=== PATIENT | female | born 1960 | race American Indian/Alaskan Native ===

== ENCOUNTER 2017-09-15 09:46 | Emergency (ER) | payer SELFPAY ==
[2017-09-15 10:59] LABS: ADD MAN DIFF? NO
[2017-09-15 11:02] LABS: BASO # 0.1 x10^3/uL (0.0-0.2); BASO % 1 % (0-3); EOS # 0.3 x10^3/uL (0.0-0.7); EOS % 4 % (0-3); HEMATOCRIT 40.5 % (36.0-47.0); HEMOGLOBIN 13.9 g/dL (12.0-15.5); LYMPH # 2.3 x10^3/uL (1.0-4.8); LYMPH % 34 % (24-48); MEAN CORPUSCULAR HEMOGLOBIN 30 pg (25-35); MEAN CORPUSCULAR HGB CONC 34 g/dL (31-37); MEAN CORPUSCULAR VOLUME 89 fL (79-100); MONO # 0.8 x10^3/uL (0.0-1.1); MONO % 12 % (0-9); NEUT # 3.4 x10^3uL (1.8-7.7); NEUT % 49 % (31-73); PLATELET COUNT 185 x10^3/uL (140-400); RED BLOOD COUNT 4.55 x10^6/uL (3.50-5.40); RED CELL DISTRIBUTION WIDTH 13.9 % (11.5-14.5); WHITE BLOOD COUNT 6.9 x10^3/uL (4.0-11.0)
[2017-09-15 11:04] LABS: BILIRUBIN,URINE NEGATIVE (NEG); CLARITY,URINE CLEAR; COLOR,URINE YELLOW; GLUCOSE,URINE NEGATIVE (NEG); NITRITE,URINE NEGATIVE (NEG); PROTEIN,URINE NEGATIVE (NEG-TRACE)
[2017-09-15 11:09] LABS: ANION GAP 8 (6-14); BLOOD UREA NITROGEN 17 mg/dL (7-20); BUN/CREATININE RATIO 14 (6-20); CALCIUM 8.8 mg/dL (8.5-10.1); CARBON DIOXIDE 26 mmol/L (21-32); CHLORIDE 108 mmol/L (98-107); CREATININE 1.2 mg/dL (0.6-1.0); GFR 46.6; GLUCOSE 104 mg/dL (70-99); POTASSIUM 3.4 mmol/L (3.5-5.1); SODIUM 142 mmol/L (136-145)
[2017-09-15 11:15] LABS: ALBUMIN 2.9 g/dL (3.4-5.0); ALBUMIN/GLOBULIN RATIO 0.6 (1.0-1.7); ALK PHOS 87 U/L (46-116); ALT (SGPT) 50 U/L (14-59); AST (SGOT) 47 U/L (15-37); SQUAMOUS EPITHELIAL CELL,UR MANY /LPF; TOTAL BILIRUBIN 0.4 mg/dL (0.2-1.0); TOTAL PROTEIN 7.6 g/dL (6.4-8.2)
[2017-09-15 11:16] LABS: BACTERIA,URINE MODERATE /HPF (0-FEW)
[2017-09-15 11:21] LABS: NT-PRO BNP 68 pg/mL (0-124)
[2017-09-15] MEDS ORDERED: ONDANSETRON PF 4 MG/2 ML VIAL. (11:35)
[2017-09-15] MEDS: IV NORMAL SALINE 1000ML BAG 1,000 ML IV (11:38)
[2017-09-15] MEDS: ONDANSETRON PF 4 MG/2 ML VIAL. IV (11:46)
== END 2017-09-15 12:56 | disposition home or self-care (01) ==
LOC: ER 09:46
DX: R44.3 Hallucinations, unspecified (principal); H66.91 Otitis media, unspecified, right ear; G25.81 Restless legs syndrome; J45.909 Unspecified asthma, uncomplicated; F31.9 Bipolar disorder, unspecified; K21.9 Gastro-esophageal reflux disease without esophagitis; I11.0 Hypertensive heart disease with heart failure; I50.9 Heart failure, unspecified; Z98.51 Tubal ligation status; Z90.49 Acquired absence of other specified parts of digestive tract; Z88.6 Allergy status to analgesic agent; Z88.5 Allergy status to narcotic agent
CPT/HCPCS: 36415; 80053; 81001; 83880; 85025; 87086; 93005; 96374; 99285-25; J2405; J7030